=== PATIENT | female | born 1970 | race Caucasian/White ===

== ENCOUNTER 2025-03-05 05:40 | Observation (INO) ==
--- NOTE | 2025-02-22 10:20 | Anesthesiology Consultation ---
Date of Service February 22, 2025 Assessment & Plan (1) Encounter for pre-operative examination: - Check test DOS - Infectious disease screening: Per assessment on 02/22/25- No known recent infectious disease contacts or current infectious disease symptoms. - S/P Left VANESSA 10/30/24: SAB L3-4 (1 attempt), [facility] - Outpatient joint pathway: Per OR booking comments, plan for outpatient joint program. Patient is an acceptable candidate to proceed as planned outpatient joint pathway pending perioperative course. Surgeon's office arranging post-op home management. Chart Review Chart Review: Acceptable Risk for Surgery and Patient NOT seen in Pre Admission Testing History Surgery Operation Date: 03/05/25 09:00 Proposed Procedures p OP: Right Anterior Total Hip Arthroplasty - Peter Brower DO Height/Weight Height: 5 ft 3 in Weight: 63.503 kg Allergies Allergy/AdvReac Type Severity Reaction Status Date / Time erythromycin base AdvReac Severe Gastrointestinal Verified 02/22/25 09:37 Upset hydromorphone [From Dilaudid] AdvReac Burning/tingling Verified 02/22/25 10:17 in IV after administration Medications Home Medications Medication Instructions Recorded Confirmed Last Taken Osteo Matrix 1 dose PO DAILY 09/21/24 02/22/25 10/18/24 cholecalciferol (vitamin D3) 25 25 mcg PO DAILY 09/21/24 02/22/25 10/29/24 10:00 mcg (1,000 unit) capsule (Vitamin D3) ferrous sulfate, dried 160 mg (50 160 mg PO DAILY 09/21/24 02/22/25 10/29/24 10:00 mg iron) tablet,extended release ibuprofen 200 mg capsule 200 mg PO Q6H PRN Pain 09/21/24 02/22/25 10/27/24 multivitamin 1 tab PO DAILY 10/30/24 02/22/25 10/16/24 oxycodone 5 mg tablet 5 mg PO Q6H PRN pain #30 tabs 10/30/24 02/22/25 Unknown sennosides 17.2 mg tablet (Senokot 17.2 mg PO HS PRN constipation #14 10/30/24 02/22/25 Unknown Extra Strength) tabs Past Medical History Medical History Benign tumor Left sided meningioma, dx ~2016 Under surveillance every few years History of COVID-19 2019, resolved History of uterine fibroid Monitoring Hx of Lyme disease ~2021, treated, occasional joint pain Migraines Osteoarthritis Past Family History Family History Grandfather (Paternal) Diabetes Mother Hypertension Father Stroke Daughter History of anesthesia reaction Daughter- requires more anesthesia to get to sleep (natural red head) Past Surgical History Surgical History History of colonoscopy History of dilatation and curettage History of total left hip replacement 10/2024 [place] teeth extracted Social History Smoking Status: Never smoker Do You Dip or Chew Tobacco: No Hx Alcohol Use: No Hx Substance Use: No substance use type: does not use Lab Results Anesthesia Preop Results Results Anesthesia Widget: WBC 7.20 K/ul (4.8-10.8) 02/05/25 Hgb 13.5 g/dl (12.0-16.0) 02/05/25 Hct 39.5 % (37.0-47.0) 02/05/25 Plt 252 K/uL (130-400) 02/05/25 Na 139 mmol/L (136-145) 02/05/25 K 4.0 mmol/L (3.5-5.1) 02/05/25 Cl 104 mmol/L (98-107) 02/05/25 CO2 27 mmol/L (21-32) 02/05/25 BUN 11 mg/dl (6-23) 02/05/25 Creat 0.71 mg/dl (0.6-1.2) 02/05/25 Glucose Level 96 mg/dl (70-99(Fasting)) 02/05/25 PT 10.3 Seconds (9.0-12.0) 02/05/25 PTT 29 Seconds (21-31) 02/05/25 INR 1.0 (0.9-1.1) 02/05/25 Blood Type A Negative 02/05/25 Antibody Screen NEGATIVE 02/05/25 Testing Electrocardiogram Date: 10/03/24 NSR at 62bpm. "Normal ECG" Chest X-Ray Date: 10/03/24 FINDINGS: Heart size and pulmonary vasculature are normal. No effusion or consolidation. Lungs are hyperexpanded. IMPRESSION: Hyperexpanded lungs with no acute findings seen.
--- NOTE | 2025-03-01 07:55 | History & Physical Report ---
Date of Service March 01, 2025 Assessment & Plan (1) Osteoarthritis of right hip: We will proceed with a right anterior total of arthroplasty. Postoperatively, she will be started on aspirin for DVT prophylaxis and kept overnight in the hospital for postop medical management. She plans to go to outpatient physical therapy in [place] after discharge. History of Present Illness Chief Complaint: Osteoarthritis of the right hip. Primary Care Provider: Tanisha MArely Ring is a pleasant 54-year-old female who is now 4 months out from a left hip replacement. She has been dealing with chronic worsening osteoarthritis of the right hip. X-rays and clinical examination be diagnostic for advanced arthritis. After failing conservative treatment, she has elected to proceed with a right anterior total of arthroplasty.. Allergies Allergy/AdvReac Type Severity Reaction Status Date / Time erythromycin base AdvReac Severe Gastrointestinal Verified 02/22/25 09:37 Upset hydromorphone [From Dilaudid] AdvReac Burning/tingling Verified 02/22/25 10:17 in IV after administration Home Medications Medication Instructions Recorded Confirmed Type Osteo Matrix 1 dose PO DAILY 09/21/24 02/22/25 History cholecalciferol (vitamin D3) 25 25 mcg PO DAILY 09/21/24 02/22/25 History mcg (1,000 unit) capsule (Vitamin D3) ferrous sulfate, dried 160 mg (50 160 mg PO DAILY 09/21/24 02/22/25 History mg iron) tablet,extended release ibuprofen 200 mg capsule 200 mg PO Q6H PRN Pain 09/21/24 02/22/25 History multivitamin 1 tab PO DAILY 10/30/24 02/22/25 History oxycodone 5 mg tablet 5 mg PO Q6H PRN pain #30 tabs 10/30/24 02/22/25 Rx sennosides 17.2 mg tablet (Senokot 17.2 mg PO HS PRN constipation #14 10/30/24 02/22/25 Rx Extra Strength) tabs Past Med/Surg History Problem List Encounter for pre-operative examination Pelvic mass in female 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 Medical History History of uterine fibroid Monitoring Hx of Lyme disease ~2021, treated, occasional joint pain Osteoarthritis Benign tumor Left sided meningioma, dx ~2016 Under surveillance every few years Migraines History of COVID-19 2019, resolved Surgical History History of total left hip replacement 10/2024 History of dilatation and curettage History of colonoscopy [place] teeth extracted Family History Grandfather (Paternal) Diabetes Mother Hypertension Father Stroke Daughter History of anesthesia reaction Daughter- requires more anesthesia to get to sleep (natural red head) Social History Smoking Status: Never smoker Second Hand Exposure: No; Do You Dip or Chew Tobacco: No; Hx Alcohol Use: No Hx Substance Use: No Preferred Language: [place] Communication Ability: Effective Rv Servicer Required: No Beliefs That Will Affect Care: None Current Living Situation: Spouse Feels Safe at Home: Yes Assistive Devices: Glasses Review of Systems All systems reviewed & are unremarkable except as noted in HPI & below. Physical Exam On physical exam of the right hip, she has decreased range of motion. She has pain with internal/external rotation. All of her pain is located in the groin.. Constitutional WD/WN, vitals as above Eyes PERRL, conjunctivae normal, anicteric sclerae ENMT external ear and nose normal, oropharynx normal Neck trachea midline, no thyromegaly Respiratory normal respiratory effort Cardiovascular RRR, no murmur, no edema Gastrointestinal (Abdomen) normal bowel sounds, soft, nontender, no hepatosplenomegaly Psychiatric A+Ox3, euthymic affect Results & Data Results & Data Laboratory Results . Diagnostic Findings . PG Care Time/CCT Total # of Minutes Spent Total Time Spent with Patient: Total time spent is greater than 50% in coordination of care (as documented) at patient's floor/unit and/or counseling patient: Coding Level of Care Code None Diagnoses Osteoarthritis of right hip M16.11
[2025-03-05] MEDS: LR 500ML BOLUS, THEN 15ML/HR IV SCH (06:13)
[2025-03-05] MEDS ORDERED: MIDAZOLAM HCL 1 MG/ML 2ML VIAL ONE (06:13)
[2025-03-05] MEDS: LR 60ML/HR IV SCH (06:13)
[2025-03-05] MEDS: ACETAMINOPHEN 500 MG TAB PO SCH ×2 (06:14→15:14)
[2025-03-05] MEDS ORDERED: ONDANSETRON INJ 2 MG/ML 2 ML VIAL ONE (06:15)
[2025-03-05] MEDS: GABAPENTIN 900 MG DOSE PO SCH (06:15)
[2025-03-05] MEDS: FAMOTIDINE 20 MG TAB PO SCH (06:15)
[2025-03-05] MEDS: dexAMETHasone**PF** 10 MG/ML VIAL IV SCH (06:15)
[2025-03-05] MEDS ORDERED: ATROPINE SULFATE 0.1 MG/ML 10ML SYR IV PRN (06:28)
[2025-03-05] MEDS ORDERED: ONDANSETRON INJ 2 MG/ML 2 ML VIAL IV PRN ×2 (06:28→09:36)
--- NOTE | 2025-03-05 06:30 | History & Physical Bridge Note ---
Date of Service March 05, 2025 History & Physical Bridge Note I have examined the patient, reviewed the History & Physical and in the interval since the performance of the History & Physical I have noted the following changes of clinical significance: no changes noted
[2025-03-05] MEDS ORDERED: BUPIVACAINE 0.5 % 5 MG/1 ML PF 10ML VIAL ONE (06:33)
[2025-03-05] MEDS ORDERED: PROPOFOL IV EMULSION 10 MG/ML 20 ML VIAL IV ONE (06:34)
[2025-03-05] MEDS ORDERED: LIDOCAINE 2% 2 ML VIAL/AMP(20MG/ML) INFIL ONE (06:34)
[2025-03-05] MEDS: TRANEXAMIC ACID 1,000 MG **IV Pre-op IV SCH (06:39)
[2025-03-05] MEDS ORDERED: DexMEDEtomidine HCL IV 100 MCG/ML VIAL IV ONE (06:40)
[2025-03-05] MEDS ORDERED: ePHEDrine sulfate 50 MG/5 ML SYR ONE (07:15)
[2025-03-05] MEDS: ORTHO JOINT ANESTHETIC ONE (07:26)
[2025-03-05] MEDS: ROPIV 0.5% 246mg, Ketorolac 30mg, EPINEPHrine 0.5mg in NSS INFIL SCH (07:26)
--- NOTE | 2025-03-05 07:50 | Operative Report ---
PG Post Operative Report Pre & Post Diagnosis Operation Date: 03/05/25 07:00 Pre-Op Diagnosis: Right Hip Osteoarthritis Post-Op Diagnosis: Right Hip Osteoarthritis I identified the patient and participated in the time-out.: Yes Procedure Operation Date: 03/05/25 07:00 Actual Procedures p Right Anterior Total Hip Arthroplasty, Uncemented(Right) - Peter Brower DO Surgeon Peter Brower DO Mica Machine Operator Chester Kathleen PA-C Estimated Blood Loss 200 Findings Consistent with Post-Op Diagnosis Specimens Right femoral head Description of Procedure Implants used I used a ZimmerBiomet total hip arthroplasty system with a size 0 standard offset Z1 stem, a 48 mm G7 cup, an E1 polyethylene liner, a 32 mm ceramic head with a +3.5 neck. María Elena arrived at the hospital for the above procedure. She was seen in the preoperative holding area and the operative extremity was identified and signed. She was given a spinal anesthetic, a preoperative antibiotic, and TXA. She was then taken back to the operating room and laid on the table in the supine position. She was given basic sedation. The operative leg was secured to a Puristst leg positioner. The hip was then prepped and draped in sterile fashion. A timeout was done and the patient and the operative extremity was properly identified. An anterior approach was used. Dissection was taken down through the fascia and the tensor muscle belly was retracted laterally and the rectus was retracted medially. The circumflex vessels were identified and ligated. The capsule was then incised and tagged for later repair. The femoral neck was then cut and the femoral head was removed. The acetabulum was exposed. Time was spent doing a complete circumferential labral release. Sequential reaming of the acetabulum up to a size 47 reamer was done. Final reamings were done under fluoroscopy to ensure appropriate version. A Biomet 48 mm G7 cup was then impacted into place. The E1 polyethylene liner was then snapped into place. Surrounding soft tissues were then injected with 100 cc of an orthopedic pain control cocktail. The proximal femur was then exposed. Sequential broaching up to a size 0 broach was done. Off that broach a size 32 head with a +3.5 neck was trialed. The hip was reduced and fluoroscopic images showed anatomic alignment of the implants in acceptable length. The broach was removed. The final size 0 standard offset Z1 stem was then impacted into place. A ceramic 32 mm head with a +3.5 neck was then impacted onto the stem and the hip was reduced. Final fluoroscopic images showed anatomic alignment of the hip. The capsule was then closed with #1 Vicryl suture. A dilute betadyne lavage was then done for 3 minutes. The joint was then irrigated with normal saline solution. The fascia was closed with #1 PDS suture. Skin was closed with 2-0 Vicryl, Britton Zipline, and a Silverlon dressing. She was then transferred to a hospital bed and taken to the post anesthesia care unit in stable condition. She tolerated the procedure well. Chester Kathleen PA-C, was present for the entire procedure. He was critical for patient positioning, prepping, draping, retraction exposure, wound closure and application of sterile dressing. I attest to the content of the Intraoperative Record and any orders documented therein. Any exceptions are noted below.
--- NOTE | 2025-03-05 08:00 | Fluoroscopy Report ---
FL hip RT 1V CLINICAL HISTORY: Total anterior right hip. COMPARISON STUDY: Right hip radiographs December 19, 2024. Fluoroscopy time: 8 seconds. Number of fluoroscopic images: 1. Ka,r: 0.9631 mGy. FINDINGS: Fluoroscopy was provided during anterior total right hip arthroplasty. Hardware is intact. Alignment is anatomic. No fractures are identified by fluoroscopy. Irregularity and lucency within th e acetabulum was present on preoperative radiographs. This is degenerative. Suspected calcified fibro ids are incidentally noted. IMPRESSION: Fluoroscopy provided during total anterior hip arthroplasty. ACT 112: Negative or not required by law. Electronically signed by: Arnulfo Chamorro M.D. 03/05/2025 7:57 AM
--- NOTE | 2025-03-05 08:53 | XRay Report ---
XR hip 1V RT w pelvis CLINICAL HISTORY: IN PACU - Post Surgical COMPARISON: 10/30/2024 FINDINGS: Bilateral hip prostheses show no hardware complication. There is expected soft tissue gas on the right. Likely calcified uterine fibroids again seen. IMPRESSION: Unremarkable postoperative exam. ACT 112: Negative or not required by law. Electronically signed by: Zackery Serrato M.D. 03/05/2025 8:51 AM
[2025-03-05] MEDS ORDERED: MAGNESIUM HYDROXIDE SUSP 30 ML UDC PO PRN (09:36)
[2025-03-05] MEDS ORDERED: METOCLOPRAMIDE HCL INJ 5 MG/ML 2 ML VIAL IV PRN (09:36)
[2025-03-05] MEDS ORDERED: HYDROmorphone INJ 0.5 MG/0.5 ML SYR IV PRN (09:36)
[2025-03-05] MEDS ORDERED: NALOXONE HCL 0.4 MG/1 ML VIAL/CARP IV PRN (09:36)
[2025-03-05] MEDS: SODIUM CHLORIDE 0.9% 1,000 ML IV SCH (09:46)
--- NOTE | 2025-03-05 10:52 | Anesthesiology Progress Note ---
Date of Service March 05, 2025 Anesthesia Post Procedure Vital Signs Vital Signs: Temp Pulse Pulse Resp BP Pulse Ox O2 Del Method 03/05/25 10:06 97.3 F L 77 17 105/67 99 Room Air 03/05/25 09:30 97.3 F L 83 17 111/66 99 Room Air 03/05/25 09:15 68 14 109/55 L 97 Room Air 03/05/25 09:05 67 16 119/60 97 Room Air 03/05/25 08:50 97.5 F L 69 20 127/52 L 97 Room Air 03/05/25 08:40 78 16 115/58 L 99 Oxymask 03/05/25 08:30 81 16 120/57 L 100 Oxymask 03/05/25 08:20 68 14 111/61 100 Oxymask 03/05/25 08:10 97.3 F L 79 16 118/64 99 Oxymask 03/05/25 06:00 97.5 F L 74 18 143/60 H 96 Room Air O2 Flow Rate 03/05/25 10:06 03/05/25 09:30 03/05/25 09:15 03/05/25 09:05 03/05/25 08:50 03/05/25 08:40 4 03/05/25 08:30 4 03/05/25 08:20 4 03/05/25 08:10 6 03/05/25 06:00 Transfer of Care Handoff Completed per policy Notes Mental Status: alert / awake / arousable and participated in evaluation Patient Amnestic to Procedure: Yes Nausea / Vomiting: adequately controlled Pain: adequately controlled Airway Patency, RR, SpO2: stable & adequate BP & HR: stable & adequate Hydration State: stable & adequate Neuraxial Anesthesia: was administered and sensory block is resolving Anesthetic Complications: no major complications apparent and Pt Satisfied with anesthetic care
[2025-03-05] MEDS: DOCUSATE SODIUM 100 MG CAP PO SCH (10:54)
[2025-03-05] MEDS: MULTIVITAMIN TAB PO SCH (10:54)
[2025-03-05] MEDS: KETOROLAC TROMETHAMINE 15 MG/ML VIAL IV SCH (11:48)
[2025-03-05] MEDS: ASPIRIN 81 MG ECTAB PO SCH (20:44)
[2025-03-05] MEDS: SENNA 8.6 MG TAB PO SCH (20:44)
[2025-03-06 03:48] VITALS: RESP 16
[2025-03-06 08:02] VITALS: BP 118/74; PULSE 72; TEMP 97.7; O2SAT 96
--- NOTE | 2025-03-06 09:41 | Orthopedic Progress Note ---
Date of Service March 06, 2025 Assessment & Plan (1) Status post right hip replacement: * Continue Current Treatment * Disposition: Home * Daily treatment: Physical Therapy/ Occupational Therapy per protocol * Weight bearing status: as tolerated * Continue to monitor for ABLA * Pain control * DVT prophylaxis, ASA * Office/hospital f/u 2 weeks for progress check and staple/suture removal * Plan for discharge today pending PT/OT clearance Subjective .Active Problems: S/p right total hip arthroplasty POD 1 54 y/o female s/p S/p right total hip arthroplasty with Dr. Brower 03/05/25. Doing well overall, pain managed and improved function. Denies fever/chills, chest pain/SOB, nausea/vomiting. Otherwise no complaints. Review of Systems All systems reviewed & are unremarkable except as noted in HPI & below. Physical Exam * General: Alert and oriented, no acute distress * Constitutional: well-developed, well-nourished. * Respiratory: Normal respiratory effort, no distress * Gastrointestinal: No tenderness to palpation, no rigidity or guarding. * Skin: No rash or lesion. * Neurologic: Grossly normal * Musculoskeletal: Right hip surgical dressing clean, dry and in place, not removed for exam. Otherwise no obvious deformity or overlying skin changes. Diffuse TTP proximal thigh and hip region. Otherwise no specific tenderness of distal thigh, lower leg, foot/ankle. AROM hip flexion intact. AROM foot/ankle intact. Sensation intact plantar/dorsal foot. Brisk capillary refill. . Results & Data Results & Data Laboratory Results . Diagnostic Findings Hip X-Ray 03/05/25 07:00 FL hip RT 1V CLINICAL HISTORY: Total anterior right hip. COMPARISON STUDY: Right hip radiographs December 19, 2024. Fluoroscopy time: 8 seconds. Number of fluoroscopic images: 1. Ka,r: 0.9631 mGy. FINDINGS: Fluoroscopy was provided during anterior total right hip arthroplasty. Hardware is intact. Alignment is anatomic. No fractures are identified by fluoroscopy. Irregularity and lucency within the acetabulum was present on preoperative radiographs. This is degenerative. Suspected calcified fibroids are incidentally noted. IMPRESSION: Fluoroscopy provided during total anterior hip arthroplasty. ACT 112: Negative or not required by law. Electronically signed by: Arnulfo Chamorro M.D. 03/05/2025 7:57 AM Hip/Pelvis X-Ray 03/05/25 08:15 XR hip 1V RT w pelvis CLINICAL HISTORY: IN PACU - Post Surgical COMPARISON: 10/30/2024 FINDINGS: Bilateral hip prostheses show no hardware complication. There is expected soft tissue gas on the right. Likely calcified uterine fibroids again seen. IMPRESSION: Unremarkable postoperative exam. ACT 112: Negative or not required by law. Electronically signed by: Zackery Serrato M.D. 03/05/2025 8:51 AM . PG Care Time/CCT Total # of Minutes Spent Total Time Spent with Patient: Total time spent is greater than 50% in coordination of care (as documented) at patient's floor/unit and/or counseling patient: Coding Level of Care Code 97932 Post Operative Follow-Up Diagnoses Status post right hip replacement Z96.641
== END 2025-03-06 11:55 | disposition home or self-care (01) ==
LOC: 3E 05:40 → ASU 05:40